=== PATIENT | female | born 1960 | race Caucasian/White ===

== ENCOUNTER 2017-08-07 18:42 | Emergency (ER) | payer OTHER ==
[~2017-08-07] VITALS: Ht 162.6 cm; Wt 61.2 kg
[2017-08-07] MEDS ORDERED: SYNTHROID50 MCG PO (19:44)
[2017-08-07] MEDS ORDERED: FLEXERIL PO (19:44)
[2017-08-07] MEDS ORDERED: ZOLOFT50 MG PO (19:45)
[2017-08-07] MEDS ORDERED: NORVASC2.5 MG PO (19:45)
[2017-08-07 20:13] VITALS: BP 140/59
[2017-08-07 20:19] LABS: AMP/METHAMP Negative (Negative); BARBITURATES Negative (Negative); BENZODIAZEPINES Negative (Negative); COCAINE Negative (Negative); METHADONE Negative (Negative); OPIATES Negative (Negative); PCP Negative (Negative)
== END 2017-08-07 20:14 | disposition home or self-care (01) ==
LOC: ER 18:42
PROVIDERS: Emergency Medicine
DX: M54.2 Cervicalgia (principal); Z88.1 Allergy status to other antibiotic agents; V49.09XA Driver injured in collision with other motor vehicles in nontraffic accident, initial encounter; Y93.89 Activity, other specified; Y92.89 Other specified places as the place of occurrence of the external cause; Y99.8 Other external cause status